=== PATIENT | male | born 1960 | race African-American/Black ===

== ENCOUNTER 2025-03-05 12:13 | Inpatient (IN) | payer OTHER ==
[2025-03-05 13:32] LABS: ABSOLUTE IMMATURE GRANULOCYTES 0.02 x10^3/uL (0.0-0.031); BASOPHILS # 0.03 x10^3/uL (0.01-0.08); EOSINOPHIL % 2.4 % (0.8-7.0); EOSINOPHILS # 0.23 x10^3/uL (0.04-0.54); MCHC 31.8 g/dl (32.3-36.5); MEAN CELL VOLUME 91.2 fl (79.0-92.2); MEAN PLT VOLUME 9.2 fl (9.4-12.4); MONOCYTE # 1.03 x10^3/uL (0.30-0.82); MONOCYTE % 10.6 % (5.3-12.2); RDW 13.4 % (12.2-16.4)
[2025-03-05 13:41] LABS: INR 1.09 (0.83-1.09); PROTHROMBIN TIME (PATIENT) 11.9 SEC (9.7-13.0)
[2025-03-05 13:44] LABS: ACTIVATED PTT 29.3 SECONDS (25.2-36.5)
[2025-03-05 15:08] LABS: CO2 26.0 mmol/L (21-32); GLUCOSE,RANDOM 155.0 mg/dL (74-106)
[2025-03-05 15:09] LABS: CREATININE 1.4 mg/dL (0.55-1.3)
[2025-03-05 15:10] LABS: SGOT/AST 21.0 U/L (15-37); SGPT/ALT 22.0 U/L (13-61)
[2025-03-05 15:11] LABS: TOT PROT 6.9 g/dl (6.4-8.2)
[2025-03-05 15:13] LABS: ALK PHOS 114.0 U/L (45-117)
[2025-03-05 17:14] VITALS: BMI 35.0
[2025-03-05 18:41] LABS: HCV DIAGNOSTIC IN-HOUSE W/RFLX NON-REACTIVE (NONREACTIVE)
[2025-03-05 20:31] LABS: HIV INTERPRETATION NEGATIVE (NEGATIVE)
[2025-03-05] MEDS: ATORVASTATIN CA 10 MG TABLET (FP) PO SCH (21:12)
[2025-03-05] MEDS: INSULIN ASPART SLIDING SCALE (NOVOLOG) 1 VIAL SQ SCH (21:24)
[2025-03-06] MEDS ORDERED: LIDOCAINE HCL 1%, 10 MG/ML (20ML VIAL) ONE (07:46)
[2025-03-06] MEDS ORDERED: BUPIVACAINE HCL/PF 0.5% (5MG/ML) 10 ML VIAL ONE (07:46)
[2025-03-06 08:08] LABS: ABSOLUTE IMMATURE GRANULOCYTES 0.02 x10^3/uL (0.0-0.031); BASOPHILS # 0.04 x10^3/uL (0.01-0.08); EOSINOPHIL % 2.5 % (0.8-7.0); EOSINOPHILS # 0.22 x10^3/uL (0.04-0.54); MCHC 31.2 g/dl (32.3-36.5); MEAN CELL VOLUME 91.6 fl (79.0-92.2); MEAN PLT VOLUME 9.9 fl (9.4-12.4); MONOCYTE # 0.81 x10^3/uL (0.30-0.82); MONOCYTE % 9.1 % (5.3-12.2); RDW 13.3 % (12.2-16.4)
[2025-03-06 08:36] LABS: CO2 28.0 mmol/L (21-32); GLUCOSE,RANDOM 181.0 mg/dL (74-106)
[2025-03-06 08:39] LABS: CREATININE 1.3 mg/dL (0.55-1.3); SGOT/AST 22.0 U/L (15-37); SGPT/ALT 22.0 U/L (13-61)
[2025-03-06 08:41] LABS: TOT PROT 7.2 g/dl (6.4-8.2)
[2025-03-06 08:42] LABS: ALK PHOS 89.0 U/L (45-117)
[2025-03-06] MEDS ORDERED: MIDAZOLAM HCL 2 MG/2 ML SINGLE DOSE VIAL ONE (09:03)
[2025-03-06] MEDS ORDERED: ONDANSETRON 4 MG/2 ML VIAL ONE ×2 (09:03→09:28)
[2025-03-06] MEDS ORDERED: PROPOFOL 20 ML ONE (09:03)
[2025-03-06] MEDS: BUPIVACAINE HCL/PF 0.5% (5MG/ML) 10 ML VIAL IJ ONE ×2 (09:25)
[2025-03-06] MEDS: LIDOCAINE HCL 1%, 10 MG/ML (20ML VIAL) NR ONE ×2 (09:25)
[2025-03-06] MEDS: VANCOMYCIN 1,000 MG VIAL (RESTRICTED TO ID ONLY) IVPB ONE (09:35)
[2025-03-06] MEDS ORDERED: ENALAPRIL MALEATE 5 MG TABLET PO SCH (10:00)
[2025-03-06] MEDS: ENALAPRIL MALEATE 5 MG TABLET PO SCH (10:14)
[2025-03-06] MEDS: INSULIN ASPART SLIDING SCALE (NOVOLOG) 1 VIAL SQ SCH (10:49)
[2025-03-06] MEDS: AZTREONAM 1 GM in DEXTROSE 5%-WATER - 50 ML IVPB SCH (18:25)
[2025-03-06] MEDS: ATORVASTATIN CA 10 MG TABLET (FP) PO SCH (21:31)
[2025-03-06] MEDS: VANCOMYCIN/WATER FOR INJ (PEG) 1,000 MG/200 ML BAG IVPB SCH (21:31)
[2025-03-07] MEDS: COLLAGENASE CLOSTRIDIUM HIST. 30 GRAMS TUBE TP SCH (14:40)
[2025-03-08] MEDS: PANTOPRAZOLE 40 MG TABLET PO SCH (18:08)
[2025-03-08] MEDS: HEPARIN NA (PORCINE) 5,000 UNITS/ML 1ML VIAL SQ SCH (22:02)
[2025-03-09 07:33] LABS: MCHC 31.6 g/dl (32.3-36.5); MEAN CELL VOLUME 91.7 fl (79.0-92.2); MEAN PLT VOLUME 9.8 fl (9.4-12.4); RDW 13.4 % (12.2-16.4)
[2025-03-09 09:40] LABS: CREATININE 1.4 mg/dL (0.55-1.3)
[2025-03-09 09:44] LABS: TOT PROT 6.5 g/dl (6.4-8.2)
[2025-03-09 10:13] LABS: GLUCOSE,RANDOM 176.0 mg/dL (74-106)
[2025-03-09 10:16] LABS: SGOT/AST 16.0 U/L (15-37)
[2025-03-09 10:17] LABS: CO2 24.0 mmol/L (21-32); SGPT/ALT 19.0 U/L (13-61)
[2025-03-09 10:23] LABS: ALK PHOS 92.0 U/L (45-117)
[2025-03-10 07:30] LABS: ABSOLUTE IMMATURE GRANULOCYTES 0.04 x10^3/uL (0.0-0.031); BASOPHILS # 0.04 x10^3/uL (0.01-0.08); EOSINOPHIL % 2.2 % (0.8-7.0); EOSINOPHILS # 0.22 x10^3/uL (0.04-0.54); MCHC 31.0 g/dl (32.3-36.5); MEAN CELL VOLUME 91.1 fl (79.0-92.2); MEAN PLT VOLUME 10.0 fl (9.4-12.4); MONOCYTE # 1.06 x10^3/uL (0.30-0.82); MONOCYTE % 10.8 % (5.3-12.2); RDW 13.2 % (12.2-16.4)
[2025-03-10 07:43] LABS: CO2 25.0 mmol/L (21-32); GLUCOSE,RANDOM 202.0 mg/dL (74-106)
[2025-03-10 07:46] LABS: CREATININE 1.4 mg/dL (0.55-1.3); SGOT/AST 16.0 U/L (15-37); SGPT/ALT 19.0 U/L (13-61)
[2025-03-10 07:47] LABS: TOT PROT 6.4 g/dl (6.4-8.2)
[2025-03-10 07:48] LABS: ALK PHOS 89.0 U/L (45-117)
[2025-03-10 18:00] VITALS: RESP 18
[2025-03-10 20:21] LABS: URINE APPEARANCE CLEAR; URINE BILIRUBIN NEGATIVE (NEGATIVE); URINE COLOR YELLOW; URINE GLUCOSE (UA) NEGATIVE (NEGATIVE); URINE KETONE NEGATIVE (NEGATIVE); URINE LEUK ESTERASE NEGATIVE (NEGATIVE); URINE NITRITE NEGATIVE (NEGATIVE); URINE PROTEIN TRACE (NEGATIVE); URINE UROBILINOGEN 0.2 mg/dL (0.2-1.0)
[2025-03-11 07:11] VITALS: TEMP 98.1
[2025-03-11 09:27] LABS: CO2 26.0 mmol/L (21-32); GLUCOSE,RANDOM 169.0 mg/dL (74-106)
[2025-03-11 09:30] LABS: CREATININE 1.4 mg/dL (0.55-1.3); SGOT/AST 17.0 U/L (15-37); SGPT/ALT 18.0 U/L (13-61)
[2025-03-11 09:32] LABS: TOT PROT 6.6 g/dl (6.4-8.2)
[2025-03-11 09:33] LABS: ALK PHOS 83.0 U/L (45-117)
[2025-03-12 07:43] LABS: MCHC 30.9 g/dl (32.3-36.5); MEAN CELL VOLUME 92.9 fl (79.0-92.2); MEAN PLT VOLUME 10.5 fl (9.4-12.4); RDW 13.5 % (12.2-16.4)
[2025-03-12 07:55] LABS: CO2 27.0 mmol/L (21-32); GLUCOSE,RANDOM 219.0 mg/dL (74-106)
[2025-03-12 07:58] LABS: CREATININE 1.5 mg/dL (0.55-1.3); SGOT/AST 22.0 U/L (15-37); SGPT/ALT 20.0 U/L (13-61)
[2025-03-12 08:00] LABS: TOT PROT 6.6 g/dl (6.4-8.2)
[2025-03-12 08:01] LABS: ALK PHOS 95.0 U/L (45-117)
[2025-03-12 14:01] VITALS: BP 131/81; PULSE 79
== END 2025-03-12 14:55 | disposition home or self-care (01) | DRG 988 ==
LOC: JER 12:13 → JERBED 12:57 → J7W 16:32 → OBSVTOIN 16:45
PROVIDERS: ADMIT Family Medicine; ATTEND Family Medicine
PROC: 0QBR3ZX Excision of Left Toe Phalanx, Percutaneous Approach, Diagnostic (ICD-10-PCS; principal; 2025-03-06 10:30)
DX: E11.69 Type 2 diabetes mellitus with other specified complication (principal); M86.9 Osteomyelitis, unspecified; E11.621 Type 2 diabetes mellitus with foot ulcer; L97.529 Non-pressure chronic ulcer of other part of left foot with unspecified severity; I10 Essential (primary) hypertension; E78.5 Hyperlipidemia, unspecified; N18.9 Chronic kidney disease, unspecified
CPT/HCPCS: 36415; 73630-TC-LT; 76775-TC; 80053; 81003; 82962; 83036; 85025; 85027; 85610; 85730; 86803; 86850; 86900; 86901; 87070; 87075; 87389; 93005; 93010; 99285-25; G0378; G0480

== ENCOUNTER 2025-03-13 12:41 | Day surgery (SDC) | payer OTHER ==
[2025-03-13] MEDS: DALBAVANCIN HCL 1,500 MG in DEXTROSE 5%-WATER - 500 ML IVPB ONE (13:17)
[2025-03-13 15:14] VITALS: BP 132/80; PULSE 78; RESP 18; TEMP 98.1
== END 2025-03-13 16:02 | disposition home or self-care (01) ==
LOC: FINFUSION 12:41 → FM/S 12:42 → FINFUSION 16:02
PROVIDERS: ATTEND Internal Medicine Infectious Disease
DX: E11.621 Type 2 diabetes mellitus with foot ulcer (principal); L97.529 Non-pressure chronic ulcer of other part of left foot with unspecified severity; Z79.4 Long term (current) use of insulin; I10 Essential (primary) hypertension
CPT/HCPCS: 96365; J0875